=== PATIENT | male | born 1990 | race Caucasian/White ===

== ENCOUNTER 2016-07-27 22:27 | Inpatient (IN) | payer MEDICARE ==
--- NOTE | ~2016-07-27 | CN ---
Consultation Report [facility] [address] [place]. [address] NAME: SMITHA FLOYD : 86 STATUS : DIS IN PAT#: [id number] AGE: 25 ADM/REG DATE : 07/27/16 MR#: [id number] REPORT SERV DATE: 07/29/16 DICTATED BY: GONSALO BOOTH DATE: 07/28/16 REPORT STATUS : Draft TRANSCRIBED BY: MODL DATE: 07/28/16 GENERAL SURGERY SERVICE CONSULT NOTE DATE OF CONSULTATION: 07/28/2016 ATTENDING SURGEON: Gonsalo Booth M.D. RESIDENT: Dr. Juan Alvarez REASON FOR CONSULT: Lower extremity wounds. HISTORY OF PRESENT ILLNESS: This is a 25-year-old male with a history of morbid obesity, chronic lower extremity hidradenitis who was admitted for new onset left thigh cellulitis with associated fevers and hypotension and subsequently diagnosed with septic shock. Symptoms were acute in onset and occurred while he was at a primary care physician wound check. The patient appears to be responding well to IV fluid resuscitation as well as some broad-spectrum antibiotics. The patient says he has never had any surgery on his lower extremity lesions before. His pain is improving since his admission. Denies any preceding events or inciting factors. PAST MEDICAL HISTORY: Obesity, hidradenitis, diabetes, schizoaffective disorder with bipolar features, hypertension, neuropathy, ADHD, GERD, pulmonary embolism, supraventricular tachycardia, hypothyroidism, and obstructive sleep apnea. PAST SURGICAL HISTORY: Gastric bypass, right ankle surgery, appendectomy, cholecystectomy, and cardiac ablation. ALLERGIES: SULFA DRUGS. MEDICATIONS: Home medications were reviewed. Please see electronic medical reconciliation for the full listing. Home medicines are significant for Xarelto for his pulmonary embolism history. SOCIAL HISTORY: He denies any alcohol, tobacco, or illicit drug use. REVIEW OF SYSTEMS: Pertinent positives and negatives as above per the HPI. Does endorse fatigue as well as some mild abdominal discomfort. Denies any chest pain. The dorsum mild shortness of breath that is improving. Full 12-point review of systems otherwise was completed with no additional findings. PHYSICAL EXAMINATION: VITAL SIGNS: Temperature 98.6, blood pressure 116/84, heart rate 97, respirations 22, breathing 100% on 2 L nasal cannula. Consultation Report [facility] [address] [place]. [address] NAME: SMITHA FLOYD : 86 STATUS : DIS IN PAT#: [id number] AGE: 25 ADM/REG DATE : 07/27/16 MR#: [id number] REPORT SERV DATE: 07/29/16 DICTATED BY: GONSALO BOOTH DATE: 07/28/16 REPORT STATUS : Draft TRANSCRIBED BY: YOLIE DATE: 07/28/16 GENERAL: This is a morbidly obese, adult white male, in no acute distress. He is alert and oriented x3. He is nontoxic appearing. CARDIOVASCULAR: Regular rate and rhythm. PULMONARY: Clear to auscultation bilaterally. ABDOMEN: Abdomen is soft, obese, nondistended, nontender. INTEGUMENT: The patient has healed bilateral groin lesions consistent with his history of hidradenitis. At his left medial thigh, there is a large area of cellulitis, but no distinct fluctuance or induration. There is no openings or drainage from the site. The patient is mildly tender at this area. LABORATORY DATA: Urinalysis is positive with many whites, many red cells, leukocyte esterase. CBC: White count is 24.9, slightly down from 25.8; hematocrit 35; platelets 170. Renal panel significant for creatinine of 2.28, a calcium of 7.6, CPK was 2331 and AST was 110. All remaining lab values were grossly normal. Of note, the patient did have a lactic acidosis on initial admission, which was resolved with resuscitation. IMAGING: CT performed at outside hospital of the abdomen and pelvis also extremity consistent with left lower extremity cellulitis and some reactive lymphadenopathy, no other acute findings. CT of the left lower extremity performed here was also consistent with left thigh cellulitis with no discrete fluid collections noted. ASSESSMENT AND PLAN: This is a 25-year-old male with chronic hidradenitis with left thigh cellulitis. 1. No drainable area on exam or on imaging studies. I agree with continuing IV fluid as well as IV antibiotics. We will follow up the results of the urine culture. 2. Agree with Wound Care consult for chronic wounds. 3. No current role for surgical intervention at this time. If the patient were to develop a drainable area or worsening erythema or change in his clinical status, I would re- evaluate. CARLOS/YOLIE Gonsalo Booth M.D. / [id number] CC: Gonsalo Booth M.D. Consultation Report [place] [id number] [place]. [address] NAME: SMITHA FLOYD : 86 STATUS : DIS IN PAT#: [id number] AGE: 25 ADM/REG DATE : 07/27/16 MR#: [id number] REPORT SERV DATE: 07/29/16 DICTATED BY: GONSALO BOOTH DATE: 07/28/16 REPORT STATUS : Draft TRANSCRIBED BY: MODL DATE: 07/28/16 JOHN PAUL THAKUR
--- NOTE | ~2016-07-27 | DS ---
Discharge Summary [address] [place]. [address] NAME: SMITHA FLOYD : 86 STATUS : DIS IN PAT#: [id number] AGE: 25 ADM/REG DATE : 07/27/16 MR#: [id number] REPORT SERV DATE: 08/01/16 DICTATED BY: ISAURA PAPPAS DATE: 07/31/16 REPORT STATUS : Draft TRANSCRIBED BY: MODHannah DATE: 07/31/16 ADMISSION DATE: 07/27/2016 DISCHARGE DATE: 07/31/2016 CONSULTATION: General Surgery, Dr. Gonsalo Booth. DISCHARGE DIAGNOSES: 1. Severe sepsis/septic shock resolved. 2. Left lower extremity cellulitis. 3. Chronic hidradenitis suppurativa. 4. Diabetes mellitus type 2. 5. Morbid obesity with history of gastric bypass surgery x2. 6. Super morbid obesity. 7. Schizoaffective disorder with bipolar features. 8. Hypertension. 9. Peripheral neuropathy. 10.ADHD. 11.Gastroesophageal reflux disease. 12.Hypothyroidism. 13.History of pulmonary embolism, on Xarelto. 14.History of supraventricular tachycardia, status post cardiac ablation. 15.History of obstructive sleep apnea, intolerant to CPAP (verbal report). DISCHARGE CONDITION: Stable. IMAGIN. CT left lower extremity, impression: Only report of what appears to be a diffuse inflammation in the fat medial and distal aspect of the lower extremities identified. A focal definite abscess is not seen. a. There is also inguinal adenopathy, particularly on the left. The patient's suspect is reactive in nature. b. Incidental large venous collateral vessels noted, previously described, suggest probably chronic distant occlusion. 2. Echocardiogram, summary: Borderline left ventricular systolic function with an estimated ejection fraction of 50%. A septal bounce is present, consistent with conduction delay. The right ventricle is not well seen. No significant valvular regurgitation or stenosis. HISTORY OF PRESENT ILLNESS: For detailed HPI, please make reference to Dr. Evin Avendano's dictation on 07/27/2016. In brief, this is a 25-year-old male with medical history significant for super morbid obesity, chronic hidradenitis of the lower extremities, who presented with left thigh swelling, redness, pain, consistent with left thigh cellulitis. There was associated fever and hypotension on presentation. Discharge Summary [address] [place]. [address] NAME: SMITHA FLOYD : 86 STATUS : DIS IN PAT#: [id number] AGE: 25 ADM/REG DATE : 07/27/16 MR#: [id number] REPORT SERV DATE: 08/01/16 DICTATED BY: ISAURA PAPPAS DATE: 07/31/16 REPORT STATUS : Draft TRANSCRIBED BY: YOLIE DATE: 07/31/16 PHYSICAL EXAMINATION: VITAL SIGNS: In the ER, blood pressure was 78/70, temperature was 104, pulse rate was 119, and saturating 91% on room air. The patient received 4 L of IV fluids. The patient's blood pressure improved from 78/40 to upper 90s. GENERAL: Physical examination showed left thigh extensive erythema, warmth, swelling, and tenderness. No ulceration. No purulent drainage from the hidradenitis noted. LABORATORY DATA: White cell count was 18.3, lactic acid 2.7, hemoglobin was 12, hematocrit 38, and platelets 170. Chemistry: Sodium was 132, creatinine was 2.23, BUN of 24, glucose was 136. Troponin was less than 0.02. CPK was 699. An assessment of severe sepsis with septic shock was made in the ER. The patient's blood cultures were taken. Urine cultures obtained. No wound culture was obtained as the patient has no drainage or ulceration from the left thigh. A CT scan of the lower extremity was done, report as noted above. General Surgery was consulted, evaluated the patient. No drainable area identified. The patient was advised to continue IV antibiotics. The patient continued on vancomycin and Zosyn. The patient's wound was cleaned and dressed daily per Wound Care recommendations. The patient's white cell count trended from the 18,000 back to 8000. The patient remained afebrile. Blood cultures yielded no growth. The patient was transitioned from broad-spectrum IV antibiotics to p.o. clindamycin at the time of discharge. An appointment was made with [facility] (patient's primary wound care clinic) for followup within one week of discharge. Acute kidney injury. The patient's creatinine on presentation was elevated at 2.27, secondary to prerenal azotemia versus sepsis. The patient's creatinine trended down after resolution of sepsis. At the time of discharge, the patient's creatinine had returned back to baseline of 0.7. Oral fixed drug eruption during the course of this admission. The patient developed oral blisters which likely is related to fixed drug eruption secondary to Zosyn. Zosyn was discontinued and placed on MD Castro oral mouthwash. The patient's oral blisters continued to improve at the time of discharge. The patient was advised to follow up with primary care physician. Rhabdomyolysis. The patient's CPK trended up from 699 to upper 2000s during the course of this admission but subsequently trended down with IV fluids. No evidence of end-organ damage noted. All end-organ damage such as NHI and elevated liver enzymes had resolved prior to discharge. Elevated liver enzymes, likely related to liver shock secondary to hypotension and sepsis. The patient's liver enzymes trended up. The patient's ALT trended up to 110 but subsequently trended down back to 68 at the time of discharge. The patient's ALT was essentially within normal range. AST likely related to hepatic injury secondary to hypertension. Hepatitis panel was checked, was nonreactive. Discharge Summary [address] [address] NAME: SMITHA FLOYD : 86 STATUS : DIS IN PAT#: [id number] AGE: 25 ADM/REG DATE : 07/27/16 MR#: [id number] REPORT SERV DATE: 08/01/16 DICTATED BY: ISAURA PAPPAS DATE: 07/31/16 REPORT STATUS : Draft TRANSCRIBED BY: YOLIE DATE: 07/31/16 History of pulmonary embolism/deep vein thrombosis. The patient's Xarelto was continued throughout this admission. No evidence of acute DVT noted. No evidence of acute DVT during this admission. CT scan of the lower extremities showed chronic obstruction likely due to chronic DVT. The patient was advised to continue Xarelto and continue followup with primary care physician. DISCHARGE MEDICATIONS: 1. Clindamycin 450 mg p.o. q.8 hours. 2. Abilify 15 mg p.o. every morning. 3. Abilify 30 mg p.o. at bedtime. 4. Xanax 1 mg at bedtime p.r.n. 5. Diltiazem CD 120 mg p.o. daily. 6. Zantac 300 mg p.o. b.i.d. 7. Iron 325 mg p.o. b.i.d. 8. Gabapentin 800 mg p.o. four times a day. 9. Synthroid 175 mcg p.o. daily. 10.Synthroid 8.5 mg p.o. q.48 hours alternating with 125 mcg every other day. 11.Magnesium 400 mg p.o. daily. 12.Mupirocin ointment. 13.Nexium 40 mg p.o. at bedtime. 14.Seroquel 400 mg p.o. at bedtime. 15.Rivaroxaban 20 mg p.o. with supper. 16.Effexor XR 75 mg p.o. b.i.d. 17.Lasix 20 mg p.o. b.i.d. 18.Lisinopril 10 mg p.o. daily. DISCHARGE CONDITION: Stable. DISCHARGE ACTIVITY: As tolerated. DISCHARGE DISPOSITION: Home with family. Greater than 30 minutes was used to prepare this patient's discharge, reconciling medication,s advising the patient on discharge plans and followup. DICTATED BY: MD DARIO Law/YOLIE Isaura Pappas MD / [id number] Discharge Summary [address] [address] NAME: SMITHA FLOYD : 86 STATUS : DIS IN PAT#: [id number] AGE: 25 ADM/REG DATE : 07/27/16 MR#: [id number] REPORT SERV DATE: 08/01/16 DICTATED BY: ISAURA PAPPAS DATE: 07/31/16 REPORT STATUS : Draft TRANSCRIBED BY: YOLIE DATE: 07/31/16 CC: MD JOHN PAUL Law [facility]
--- NOTE | ~2016-07-27 | HP ---
History And Physical [place] [id number] [facility] [place]. [address] NAME: SMITHA FLOYD : 86 STATUS : DIS IN PAT#: [id number] AGE: 25 ADM/REG DATE : 07/27/16 MR#: [id number] REPORT SERV DATE: 07/28/16 DICTATED BY: BERNARDO GONZALEZ DATE: 07/28/16 REPORT STATUS : Draft TRANSCRIBED BY: MODL DATE: 07/28/16 DATE OF ADMISSION: 07/27/2016 CHIEF COMPLAINT: A 25-year-old male with morbid obesity, and chronic hidradenitis of the lower extremities, now presenting with left thigh cellulitis, fevers, and hypotension. HISTORY OF PRESENT ILLNESS: The patient's history was obtained through careful interview with the patient, coupled with review of medical records obtained from [facility]. The patient was in usual state of health when just on the morning leading up to admission, he had gone to see his primary care physician for followup regarding wound care. The patient has chronic hidradenitis of the lower extremities and groin. It is in the creases of his knees and in his groin area with redness and occasional ulceration. He states that it seems that his hidradenitis has been worsening lately with redness, swelling, and pain particularly in his left thigh area. It gets up to about 8/10 severity at times. But then as he was being evaluated in the office he suddenly had a high fever up to 104.0, with uncontrolled rigors and chills. He was redirected to [facility] for these symptoms. While being evaluated there he was tachycardic and became hypotensive as low as 78/40. His initial lab work demonstrated a white blood cell count of 18.3 with a lactic acid of 2.7. He was given IV vancomycin, IV Zosyn, and given IV fluid boluses with improvement in his blood pressure. He describes a headache, diffuse, 4/10 severity only though. He has had recent fatigue before this illness, but no other major symptoms prior to this presentation. He describes today new onset epigastric abdominal discomfort that radiates diffusely throughout his abdomen, a cramping quality, 6 to 7/10 severity. He has had slight shortness of breath. No cough. He has had some wheezing, no chest pain. He has had some nausea, but no vomiting. The patient has chronic diarrhea related to "short-bowel syndrome." REVIEW OF SYSTEMS: Otherwise, a 14-point review of systems was obtained, was negative. PAST MEDICAL HISTORY: 1. Hidradenitis with recurrent cellulitis and skin breakdown of his lower extremities and groin. History And Physical [place] [address] [place]. [address] NAME: SMITHA FLOYD : 86 STATUS : DIS IN PAT#: [id number] AGE: 25 ADM/REG DATE : 07/27/16 MR#: [id number] REPORT SERV DATE: 07/28/16 DICTATED BY: BERNARDO GONZALEZ DATE: 07/28/16 REPORT STATUS : Draft TRANSCRIBED BY: YOLIE DATE: 07/28/16 2. Diabetes. 3. Morbid obesity with history of gastric bypass surgery x2 with over 300-pound weight loss. 4. Schizoaffective disorder with bipolar features. 5. Hypertension. 6. Neuropathy. 7. ADHD. 8. Gastroesophageal reflux disorder. 9. Hypothyroidism. 10.Pulmonary embolism, on Xarelto. 11.Supraventricular tachycardia status post cardiac ablation. 12.Obstructive sleep apnea, but intolerant of CPAP. PAST SURGICAL HISTORY: 1. Gastric bypass surgery in 2005 and 2008 with about a 300-pound weight loss. 2. Right ankle surgery. 3. Appendectomy. 4. Cholecystectomy. 5. Cardiac ablation. ALLERGIES: TO SULFA. SOCIAL HISTORY: No tobacco abuse. No alcohol abuse. Lives in [place], [place]. He is on disability. Has no children. FAMILY HISTORY: Father with COPD and congestive heart failure. CURRENT MEDICATIONS: 1. Albuterol inhaler. 2. Xanax 2 mg four times a day as needed. 3. Abilify 15 mg in the morning and 30 mg at night. 4. Calmoseptine ointment. 5. Vitamin B12. 6. Diltiazem CD 120 mg p.o. daily. 7. Nexium 40 mg p.o. daily. 8. Iron supplement twice a day. 9. Lasix 40 mg p.o. b.i.d. 10.Neurontin 800 mg p.o. four times a day. 11.Synthroid 175 mcg p.o. daily. 12.Vyvanse 30 mg p.o. daily. 13.Lisinopril 10 mg p.o. b.i.d. 14.Imodium p.r.n. 15.Magnesium 400 mg p.o. b.i.d. 16.Bactroban ointment. 17.Nystatin cream. 18.Multivitamins. 19.Potassium 20 mEq p.o. b.i.d. History And Physical [address] [address] NAME: SMITHA FLOYD : 86 STATUS : DIS IN PAT#: [id number] AGE: 25 ADM/REG DATE : 07/27/16 MR#: [id number] REPORT SERV DATE: 07/28/16 DICTATED BY: BERNARDO GONZALEZ DATE: 07/28/16 REPORT STATUS : Draft TRANSCRIBED BY: YOLIE DATE: 07/28/16 20.Phenergan. 21.Seroquel 400 mg p.o. q.h.s. 22.Zantac 300 mg p.o. b.i.d. 23.Xarelto 20 mg p.o. daily. 24.Lidocaine patch. 25.Hemorrhoid cream. 26.Effexor XR 75 mg p.o. b.i.d. PHYSICAL EXAMINATION: VITAL SIGNS: Temperature 104, pulse 119, blood pressure as low as 78/40, respiratory rate 22, and O2 saturation 91% on room air. GENERAL: An ill, morbidly obese male, in no evidence of acute distress though. HEENT: Pupils equal, round, and reactive to light. No conjunctival pallor. No scleral icterus. Nares are patent. Oropharynx is clear of obstruction. Dry mucous membranes. NECK: Trachea midline. No thyromegaly. LYMPH: No cervical lymphadenopathy. No supraclavicular lymphadenopathy. RESPIRATORY: Clear to auscultation at bases. No wheezes, rales, or rhonchi. Normal respiratory effort. CARDIOVASCULAR: Tachycardic. Regular rhythm. No murmurs, rubs, or gallops. The patient has chronic appearing lower extremity edema, the left slightly greater than the right now. ABDOMEN: A central pattern of morbid obesity, tender throughout though, nonfocal. I do not appreciate any hepatosplenomegaly. DERMATOLOGICAL: The patient's left thigh has an extensive area of erythema, heat, swelling, tenderness. No ulceration. No purulent drainage from hidradenitis. Otherwise, warm and dry extremities. No pallor. No cyanosis. PSYCHIATRIC: Normal affect. Good mood. Alert and oriented x3. LABORATORY DATA: White blood cell count 18.3, lactic acid 2.7, hemoglobin 12, hematocrit 38, and platelets 170. Sodium 132, potassium 3.5, chloride 99, bicarb 23, BUN 24, creatinine 2.23, and glucose 136. CPK 699. Troponin negative. Albumin 2.8. Liver enzymes within normal limits. STUDIES: A CT scan of the abdomen and pelvis that has able to obtain after the patient arrived here showed significant inguinal lymphadenopathy up to 2.5 cm which seems to be inflammatory. No acute intraabdominal process, but the patient has obvious induration and cellulitis changes of the left thigh, but without any abscess formation. ASSESSMENT AND PLAN: 1. Severe sepsis with shock. Lactic acid of 2.7. Shock has responded well to IV fluid boluses. Check blood cultures done at [facility]. Place on IV vancomycin and IV Zosyn. 2. Left thigh cellulitis with groin hidradenitis. Obtain a Wound Care consult. Place on IV antibiotics. History And Physical [address] [address] NAME: SMITHA FLOYD : 86 STATUS : DIS IN [facility]#: [id number] AGE: 25 ADM/REG DATE : 07/27/16 MR#: [id number] REPORT SERV DATE: 07/28/16 DICTATED BY: BERNARDO GONZALEZ DATE: 07/28/16 REPORT STATUS : Draft TRANSCRIBED BY: YOLIE DATE: 07/28/16 3. Severe abdominal pain, but no specific changes on the CT scan of the abdomen. 4. Acute renal failure. Place on IV fluids. Place a Otero catheter. No evidence of obstruction on CT scan. 5. Morbid obesity. History of gastric bypass surgery x2 with about a 300-pound weight loss, but currently about 571 pounds. 6. Diabetes hemoglobin A1c. Place on sliding scale insulin. 7. Schizoaffective disorder with bipolar features. JUANITOL/MODL Bernardo Gonzalez M.D. / [id number] CC: Denny García FNP-C
[2016-07-27] MEDS ORDERED: B121000P IM (22:49)
[2016-07-27] MEDS ORDERED: BACTROINT TOP (22:49)
[2016-07-27] MEDS ORDERED: LIDOCAINE 0.5% TOP (22:50)
[2016-07-27] MEDS ORDERED: PROAIR HFA INH (22:50)
[2016-07-27] MEDS ORDERED: XARELTO20 MG PO (22:51)
[2016-07-27] MEDS ORDERED: CALMOSEPTINE O2.5 OZ TOP (22:51)
[2016-07-27] MEDS ORDERED: PROCTOZONE HC 2.5% PR (22:51)
[2016-07-27] MEDS ORDERED: SEROQUEL400 MG PO (22:52)
[2016-07-27] MEDS ORDERED: FERROUS SULF325 M1 PO (22:52)
[2016-07-27] MEDS ORDERED: L40 PO (22:52)
[2016-07-27] MEDS ORDERED: ZANTAC300 MG PO (22:52)
[2016-07-27] MEDS ORDERED: NEXIUM40 PO (22:52)
[2016-07-27] MEDS ORDERED: MAGOX4 PO (22:53)
[2016-07-27] MEDS ORDERED: KLOR-CON M2020 MEQ PO (22:53)
[2016-07-27] MEDS ORDERED: SYNTHROID175 MCG PO (22:54)
[2016-07-27] MEDS ORDERED: NEUR800 PO (22:54)
[2016-07-27] MEDS ORDERED: VYVANSE30 MG PO (22:54)
[2016-07-27] MEDS ORDERED: ABILIFY15 PO (22:55)
[2016-07-27] MEDS ORDERED: XANAX2 MG PO (22:55)
[2016-07-27] MEDS ORDERED: EFFEXXR75 PO (22:55)
[2016-07-27] MEDS ORDERED: ABILIFY30 MG PO (22:55)
[2016-07-27] MEDS ORDERED: PR25 PO (22:56)
[2016-07-27] MEDS ORDERED: FLINTSTONE3 PO (22:56)
[2016-07-27] MEDS ORDERED: CARDCD120 PO (22:56)
[2016-07-27] MEDS ORDERED: IMOD PO (22:56)
[2016-07-27] MEDS ORDERED: PRIN10 PO (22:57)
[2016-07-27] MEDS ORDERED: MYCOSCROI TOP (22:57)
[2016-07-27 23:46] LABS: HEMATOCRIT 38.6 % (40.0-51.0); MEAN CORPUS HGB CONC 31.1 g/dL (32.0-36.0); MEAN CORPUSCULAR HEMOGLOB 29.3 pg (26.0-34.0); MEAN CORPUSCULAR VOLUME 94.1 fL (80-100); MEAN PLATELET VOLUME 9.5 fL (9.2-13.0); PLATELET COUNT 174 10/3/uL (150-400); RBC DISTRIBUTION WIDTH 17.2 % (12.0-16.0)
[2016-07-27 23:48] LABS: WHITE BLOOD CELLS 25.8 10/3/uL (4.5-10.5)
[2016-07-27 23:53] LABS: MANUAL DIFF YES %
[2016-07-28 00:05] LABS: A/G RATIO 0.7 (0.7-1.9); ALBUMIN 2.8 G/DL (3.5-5.0); ALKALINE PHOSPHATASE 100 U/L (45-117); BUN (BLOOD UREA NITROGEN) 32 MG/DL (6-23); CALCIUM, SERUM 7.8 MG/DL (8.5-10.4); CHLORIDE, SERUM 102 MMOL/L (96-112); CK-MB 18.1 NG/ML; CO2 (CARBON DIOXIDE) 27 MMOL/L (24-34); CPK 699 U/L (0-200); CREATININE 2.23 MG/DL (0.70-1.30); GFR AFRICAN AMERICAN 45 ML/MIN (>=60); GFR NON AFRICAN AMERICAN 39 ML/MIN (>=60); GLOBULIN 3.8 G/DL (2.5-4.1); GLUCOSE, SERUM 104 MG/DL (60-99); POTASSIUM, SERUM 3.9 MMOL/L (3.5-5.3); SGOT(AST) 54 U/L (5-40); SGPT(ALT) 40 U/L (5-65); SODIUM, SERUM 136 MMOL/L (135-148); TOTAL BILIRUBIN 0.7 MG/DL (0-1.2); TOTAL PROTEIN 6.6 G/DL (6.0-8.5); TROPONIN I 0.02 NG/ML (<0.05)
[2016-07-28 00:06] LABS: CKMB INDEX (NOT ORD) 2.6
[2016-07-28 01:12] LABS: ANISOCYTOSIS 1+ (5-10/OIF) (0-5/OIF); BAND NEUTROPHILS 22 %; LYMPHOCYTES 3 %; LYMPHOCYTES ABSOLUTE (CALC) 0.77 10/3/uL (0.67-4.30); MONOCYTES 4 %; MONOCYTES ABSOLUTE (CALC) 1.03 10/3/uL (0.21-1.20); NEUTROPHILS ABSOLUTE (CALC) 23.99 10/3/uL (2.02-8.40); PATH REVIEW YES; PLATELET ESTIMATE ADQ (ADEQUATE); SEGMENTED NEUTROPHIL (0) 71 %; TOTAL NUCLEATED CELLS 100
[2016-07-28 01:31] LABS: LACTATE 1.7 MMOL/L (0.3-2.4)
[2016-07-28 05:14] LABS: INTERNATIONAL NORMAL RATI 1.3 UNITS (-); PARTIAL THROMBO TIME 31.8 SEC (22.5-37.2); PROTIME (NOT ORD) 16.2 SEC (12.0-14.5)
[2016-07-28 05:34] LABS: A/G RATIO 0.8 (0.7-1.9); ALKALINE PHOSPHATASE 94 U/L (45-117); CALCIUM, SERUM 7.6 MG/DL (8.5-10.4); CHLORIDE, SERUM 102 MMOL/L (96-112); CO2 (CARBON DIOXIDE) 23 MMOL/L (24-34); CPK 2331 U/L (0-200); CREATININE 2.28 MG/DL (0.70-1.30); GFR AFRICAN AMERICAN 44 ML/MIN (>=60); GFR NON AFRICAN AMERICAN 38 ML/MIN (>=60); GLOBULIN 3.8 G/DL (2.5-4.1); GLUCOSE, SERUM 85 MG/DL (60-99); POTASSIUM, SERUM 4.1 MMOL/L (3.5-5.3); SGOT(AST) 110 U/L (5-40); SGPT(ALT) 48 U/L (5-65); SODIUM, SERUM 136 MMOL/L (135-148); TOTAL BILIRUBIN 0.8 MG/DL (0-1.2); TOTAL PROTEIN 6.8 G/DL (6.0-8.5)
[2016-07-28 05:35] LABS: BUN (BLOOD UREA NITROGEN) 38 MG/DL (6-23)
[2016-07-28 09:54] LABS: BASOPHILS 0.1 %; BASOPHILS ABSOLUTE 0.02 10/3/uL (0.0-0.16); EOSINOPHILS 0 %; HEMATOCRIT 35.1 % (40.0-51.0); IMMATURE GRANULOCYTES 0.5 %; IMMATURE GRANULOCYTES ABSOLUTE 0.12 10/3/uL (0.0-0.11); LYMPHOCYTES 2.2 %; LYMPHOCYTES ABSOLUTE 0.54 10/3/uL (0.67-4.30); MEAN CORPUS HGB CONC 31.3 g/dL (32.0-36.0); MEAN CORPUSCULAR HEMOGLOB 29.2 pg (26.0-34.0); MEAN CORPUSCULAR VOLUME 93.1 fL (80-100); MEAN PLATELET VOLUME 10.5 fL (9.2-13.0); MONOCYTES ABSOLUTE 0.51 10/3/uL (0.21-1.20); NEUTROPHILS 95.2 %; NEUTROPHILS ABSOLUTE 23.69 10/3/uL (2.02-8.40); PLATELET COUNT 170 10/3/uL (150-400); RBC DISTRIBUTION WIDTH 17.8 % (12.0-16.0); RED CELL COUNT 3.77 10/6/uL (4.7-6.1); WHITE BLOOD CELLS 24.9 10/3/uL (4.5-10.5)
[2016-07-28 09:56] LABS: MANUAL DIFF NO %
[2016-07-28 10:35] LABS: ANISOCYTOSIS 1+ (5-10/OIF) (0-5/OIF); BAND NEUTROPHILS 24 %; HYPOCHROMIA 1+ (3-10/OIF) (0-2/OIF); LYMPHOCYTES 2 %; MONOCYTES 4 %; NEUTROPHILS ABSOLUTE (CALC) 23.41 10/3/uL (2.02-8.40); PLATELET ESTIMATE ADQ (ADEQUATE); SEGMENTED NEUTROPHIL (0) 70 %; TOTAL NUCLEATED CELLS 100
[2016-07-28 15:44] LABS: ASCORBIC ACID (UR NOT ORDER) NEG (NEG); BILIRUBIN, URINE NEGATIVE (NEG); KETONE, URINE NEGATIVE (NEG); LEUKOCYTE ESTERASE(NOT OR MOD (NEG); WBC (NOT ORDERED) (RFLEX) 117 (0-5)
[2016-07-28] MEDS ORDERED: XANAX1 MG PO (16:57)
[2016-07-28] MEDS ORDERED: LEVOTHYROXIN175 MCG PO (16:57)
[2016-07-28] MEDS ORDERED: MICONAZOLE POWDER TOP (16:59)
[2016-07-29 05:20] LABS: BASOPHILS 0.1 %; BASOPHILS ABSOLUTE 0.01 10/3/uL (0.0-0.16); EOSINOPHILS 0.1 %; EOSINOPHILS ABSOLUTE 0.02 10/3/uL (0.0-0.53); HEMOGLOBIN 10.7 g/dL (13.6-17.8); IMMATURE GRANULOCYTES 0.3 %; IMMATURE GRANULOCYTES ABSOLUTE 0.06 10/3/uL (0.0-0.11); LYMPHOCYTES 6.4 %; LYMPHOCYTES ABSOLUTE 1.13 10/3/uL (0.67-4.30); MEAN CORPUS HGB CONC 31.5 g/dL (32.0-36.0); MEAN CORPUSCULAR HEMOGLOB 29.2 pg (26.0-34.0); MEAN CORPUSCULAR VOLUME 92.9 fL (80-100); MEAN PLATELET VOLUME 10.4 fL (9.2-13.0); MONOCYTES 4.1 %; MONOCYTES ABSOLUTE 0.72 10/3/uL (0.21-1.20); NEUTROPHILS ABSOLUTE 15.66 10/3/uL (2.02-8.40); PLATELET COUNT 138 10/3/uL (150-400); RBC DISTRIBUTION WIDTH 18.2 % (12.0-16.0); RED CELL COUNT 3.66 10/6/uL (4.7-6.1); WHITE BLOOD CELLS 17.6 10/3/uL (4.5-10.5)
[2016-07-29 05:21] LABS: MANUAL DIFF NO %
[2016-07-29 05:54] LABS: A/G RATIO 0.8 (0.7-1.9); ALBUMIN 2.5 G/DL (3.5-5.0); ALKALINE PHOSPHATASE 71 U/L (45-117); BUN (BLOOD UREA NITROGEN) 56 MG/DL (6-23); CALCIUM, SERUM 7.4 MG/DL (8.5-10.4); CHLORIDE, SERUM 105 MMOL/L (96-112); CO2 (CARBON DIOXIDE) 20 MMOL/L (24-34); CPK 1941 U/L (0-200); CREATININE 2.98 MG/DL (0.70-1.30); GFR AFRICAN AMERICAN 32 ML/MIN (>=60); GFR NON AFRICAN AMERICAN 27 ML/MIN (>=60); GLOBULIN 3.3 G/DL (2.5-4.1); GLUCOSE, SERUM 82 MG/DL (60-99); SGOT(AST) 102 U/L (5-40); SGPT(ALT) 43 U/L (5-65); SODIUM, SERUM 134 MMOL/L (135-148); TOTAL BILIRUBIN 0.3 MG/DL (0-1.2); TOTAL PROTEIN 5.8 G/DL (6.0-8.5)
[2016-07-30 05:21] LABS: BASOPHILS 0.1 %; BASOPHILS ABSOLUTE 0.01 10/3/uL (0.0-0.16); EOSINOPHILS 0.7 %; EOSINOPHILS ABSOLUTE 0.06 10/3/uL (0.0-0.53); HEMATOCRIT 34.3 % (40.0-51.0); HEMOGLOBIN 10.8 g/dL (13.6-17.8); IMMATURE GRANULOCYTES 0.2 %; IMMATURE GRANULOCYTES ABSOLUTE 0.02 10/3/uL (0.0-0.11); LYMPHOCYTES 10.8 %; LYMPHOCYTES ABSOLUTE 0.94 10/3/uL (0.67-4.30); MEAN CORPUS HGB CONC 31.5 g/dL (32.0-36.0); MEAN CORPUSCULAR HEMOGLOB 29.2 pg (26.0-34.0); MEAN CORPUSCULAR VOLUME 92.7 fL (80-100); MEAN PLATELET VOLUME 10.6 fL (9.2-13.0); MONOCYTES 7.5 %; MONOCYTES ABSOLUTE 0.65 10/3/uL (0.21-1.20); NEUTROPHILS 80.7 %; NEUTROPHILS ABSOLUTE 7.04 10/3/uL (2.02-8.40); PLATELET COUNT 120 10/3/uL (150-400); RBC DISTRIBUTION WIDTH 18.3 % (12.0-16.0)
[2016-07-30 05:22] LABS: MANUAL DIFF NO %; WHITE BLOOD CELLS 8.7 10/3/uL (4.5-10.5)
[2016-07-30 05:32] LABS: A/G RATIO 0.7 (0.7-1.9); ALBUMIN 2.4 G/DL (3.5-5.0); ALKALINE PHOSPHATASE 69 U/L (45-117); CALCIUM, SERUM 8.2 MG/DL (8.5-10.4); CHLORIDE, SERUM 111 MMOL/L (96-112); GFR AFRICAN AMERICAN 128 ML/MIN (>=60); GFR NON AFRICAN AMERICAN 111 ML/MIN (>=60); GLOBULIN 3.6 G/DL (2.5-4.1); GLUCOSE, SERUM 82 MG/DL (60-99); POTASSIUM, SERUM 4.1 MMOL/L (3.5-5.3); SGOT(AST) 68 U/L (5-40); SGPT(ALT) 39 U/L (5-65); TOTAL BILIRUBIN 0.4 MG/DL (0-1.2)
[2016-07-30 05:36] LABS: BUN (BLOOD UREA NITROGEN) 36 MG/DL (6-23); CO2 (CARBON DIOXIDE) 25 MMOL/L (24-34); CREATININE 0.94 MG/DL (0.70-1.30); SODIUM, SERUM 141 MMOL/L (135-148)
[2016-07-30 06:51] LABS: VANCOMYCIN TROUGH 11.2 MCG/ML (10.0-20.0)
[2016-07-30 12:48] LABS: HEMATOCRIT 35.8 % (40.0-51.0); HEMOGLOBIN 11.5 g/dL (13.6-17.8); MEAN CORPUS HGB CONC 32.1 g/dL (32.0-36.0); MEAN CORPUSCULAR HEMOGLOB 29.6 pg (26.0-34.0); MEAN PLATELET VOLUME 10.7 fL (9.2-13.0); NUCLEATED RED BLOOD CELLS 0.4 /100WBC (0-0); PLATELET COUNT 129 10/3/uL (150-400); RBC DISTRIBUTION WIDTH 18.2 % (12.0-16.0); RED CELL COUNT 3.89 10/6/uL (4.7-6.1); WHITE BLOOD CELLS 7.9 10/3/uL (4.5-10.5)
[2016-07-30 12:49] LABS: MANUAL DIFF YES %
[2016-07-30 13:03] LABS: A/G RATIO 0.7 (0.7-1.9); ALBUMIN 2.6 G/DL (3.5-5.0); ALKALINE PHOSPHATASE 77 U/L (45-117); CALCIUM, SERUM 8.4 MG/DL (8.5-10.4); CHLORIDE, SERUM 110 MMOL/L (96-112); CO2 (CARBON DIOXIDE) 26 MMOL/L (24-34); DIRECT BILIRUBIN 0.1 MG/DL (0.0-0.4); GFR AFRICAN AMERICAN 142 ML/MIN (>=60); GFR NON AFRICAN AMERICAN 122 ML/MIN (>=60); INDIRECT BILIRUBIN(NOT ORDER) 0.2 MG/DL (0.1-0.9); POTASSIUM, SERUM 4.5 MMOL/L (3.5-5.3); SGPT(ALT) 40 U/L (5-65); SODIUM, SERUM 141 MMOL/L (135-148); TOTAL BILIRUBIN 0.3 MG/DL (0-1.2); TOTAL PROTEIN 6.6 G/DL (6.0-8.5)
[2016-07-30 13:04] LABS: BUN (BLOOD UREA NITROGEN) 27 MG/DL (6-23); GLUCOSE, SERUM 99 MG/DL (60-99); SGOT(AST) 68 U/L (5-40)
[2016-07-30 13:21] LABS: BAND NEUTROPHILS 10 %; EOSINOPHILS 1 %; EOSINOPHILS ABSOLUTE (CALC) 0.08 10/3/uL (0.0-0.53); LYMPHOCYTES 8 %; LYMPHOCYTES ABSOLUTE (CALC) 0.63 10/3/uL (0.67-4.30); MONOCYTES 2 %; MONOCYTES ABSOLUTE (CALC) 0.16 10/3/uL (0.21-1.20); NEUTROPHILS ABSOLUTE (CALC) 7.03 10/3/uL (2.02-8.40); SEGMENTED NEUTROPHIL (0) 79 %; TOTAL NUCLEATED CELLS 100
[2016-07-30 13:22] LABS: ANISOCYTOSIS 1+ (5-10/OIF) (0-5/OIF); BURR CELLS 1+ (3-10/OIF) (0-2/OIF); MACROCYTES 1+ (5-10/OIF) (0-5/OIF); PLATELET ESTIMATE SLT DEC (ADEQUATE); POIKILOCYTOSIS 1+ (5-10/OIF) (0-5/OIF)
[2016-07-31 06:39] LABS: BASOPHILS 0.2 %; BASOPHILS ABSOLUTE 0.01 10/3/uL (0.0-0.16); EOSINOPHILS 0.8 %; EOSINOPHILS ABSOLUTE 0.05 10/3/uL (0.0-0.53); HEMATOCRIT 37.6 % (40.0-51.0); HEMOGLOBIN 11.8 g/dL (13.6-17.8); IMMATURE GRANULOCYTES 0.2 %; IMMATURE GRANULOCYTES ABSOLUTE 0.01 10/3/uL (0.0-0.11); LYMPHOCYTES 21.3 %; MEAN CORPUS HGB CONC 31.4 g/dL (32.0-36.0); MEAN CORPUSCULAR HEMOGLOB 29.1 pg (26.0-34.0); MEAN CORPUSCULAR VOLUME 92.6 fL (80-100); MEAN PLATELET VOLUME 10.4 fL (9.2-13.0); MONOCYTES 8.5 %; MONOCYTES ABSOLUTE 0.52 10/3/uL (0.21-1.20); PLATELET COUNT 119 10/3/uL (150-400); RBC DISTRIBUTION WIDTH 17.8 % (12.0-16.0); RED CELL COUNT 4.06 10/6/uL (4.7-6.1); WHITE BLOOD CELLS 6.1 10/3/uL (4.5-10.5)
[2016-07-31 06:40] LABS: MANUAL DIFF NO %
[2016-07-31 06:52] LABS: CALCIUM, SERUM 8.7 MG/DL (8.5-10.4); CHLORIDE, SERUM 108 MMOL/L (96-112); CO2 (CARBON DIOXIDE) 28 MMOL/L (24-34); CREATININE 0.56 MG/DL (0.70-1.30); GFR AFRICAN AMERICAN 164 ML/MIN (>=60); GFR NON AFRICAN AMERICAN 142 ML/MIN (>=60); GLUCOSE, SERUM 85 MG/DL (60-99); POTASSIUM, SERUM 4.1 MMOL/L (3.5-5.3); SODIUM, SERUM 141 MMOL/L (135-148)
[2016-07-31 06:53] LABS: BUN (BLOOD UREA NITROGEN) 16 MG/DL (6-23)
[2016-07-31 09:21] LABS: HEPATITIS C ANTIBODY NON-REACTIVE (NON-REACT)
[2016-07-31 09:22] LABS: HEPATITIS B CORE AB IGM NON-REACTIVE (NON-REAC)
[2016-07-31 09:23] LABS: HEP A ANTIBODY IGM NON-REACTIVE (NON-REACT)
[2016-07-31 09:45] LABS: HEPATITIS B SURFACE ANTIGEN NON-REACTIVE (NON-REACT)
[2016-07-31] MEDS ORDERED: CLINDA150 PO (17:23)
[2016-08-07] MEDS ORDERED: CEFAZ1 IV (12:36)
[2016-08-07] MEDS ORDERED: FOLIC PO (12:39)
[2016-08-07] MEDS ORDERED: FLORASTOR250 MG PO (12:44)
[2016-08-07] MEDS ORDERED: NYS500UDL PO (13:01)
[2016-08-07] MEDS ORDERED: MD ANDERSON PO (13:03)
== END 2016-07-31 18:15 | disposition home or self-care (01) | DRG 871 ==
LOC: IMCU 22:27 → 6NO 07-31 00:20
PROVIDERS: Hospitalist; Internal Medicine
DX: A41.9 Sepsis, unspecified organism (principal); R65.21 Severe sepsis with septic shock; K72.00 Acute and subacute hepatic failure without coma; N17.9 Acute kidney failure, unspecified; E11.42 Type 2 diabetes mellitus with diabetic polyneuropathy; Z68.44 Body mass index [BMI] 60.0-69.9, adult; I47.1 Supraventricular tachycardia; M62.82 Rhabdomyolysis; L03.116 Cellulitis of left lower limb; I82.891 Chronic embolism and thrombosis of other specified veins; E66.01 Morbid (severe) obesity due to excess calories; L73.2 Hidradenitis suppurativa; F25.9 Schizoaffective disorder, unspecified; F90.9 Attention-deficit hyperactivity disorder, unspecified type; K21.9 Gastro-esophageal reflux disease without esophagitis; G47.33 Obstructive sleep apnea (adult) (pediatric); L27.1 Localized skin eruption due to drugs and medicaments taken internally; T36.0X5A Adverse effect of penicillins, initial encounter; E03.9 Hypothyroidism, unspecified; F31.9 Bipolar disorder, unspecified; Z98.84 Bariatric surgery status; Z86.711 Personal history of pulmonary embolism; Z79.01 Long term (current) use of anticoagulants; Z86.718 Personal history of other venous thrombosis and embolism
CPT/HCPCS: 71010; 73700-LT; 74176; 76775; 80048; 80053; 80074; 80202; 81001; 82248; 82533; 82550; 82553; 82962; 83036; 83605; 83735; 83874; 83880; 84100; 84443; 84484; 84681; 85025; 85610; 85730; 87040; 87086; 97161-GP; A9270-GY; C8929; G8978-CJ-GP; G8979-CJ-GP; G8980-CJ-GP; J2543; J3370; J3411; P9047; Q9957